=== PATIENT | male | born 1950 | race Caucasian/White ===

== ENCOUNTER 2016-07-30 11:55 | Inpatient (IN) | payer MEDICAID ==
[~2016-07-30] VITALS: Ht 172.7 cm; Wt 69.4 kg
[2016-07-30] VITALS (12 sets, daily range): BP systolic 75–147; BP diastolic 38–73
[2016-07-30] MEDS ORDERED: SIMV-260 PO (12:39)
[2016-07-30] MEDS ORDERED: LISI1TAB11 PO (12:39)
[2016-07-30] MEDS ORDERED: METF500T4 PO (12:39)
[2016-07-30 13:05] LABS: BASOPHILS % (AUTO) 0.3 % (0.0-2.0); EOSINOPHILS % (AUTO) 0.2 % (1.0-6.0); HEMATOCRIT 42.3 % (41-53); HEMOGLOBIN 14.1 g/dL (13.5-17.5); LYMPHOCYTES # (AUTO) 1.5 K/uL (1.0-4.8); LYMPHOCYTES % (AUTO) 13.8 % (22.0-44.0); MEAN CORPUSCULAR HEMOGLOBIN 29.5 pg (26.0-34.0); MEAN CORPUSCULAR HGB CONC 33.4 G/dL (31.0-37.0); MEAN CORPUSCULAR VOLUME 89 fL (80-100); MONOCYTES % (AUTO) 9.7 % (2.0-9.0); NEUTROPHILS # (AUTO) 8.2 K/uL (1.8-7.7); PLATELET COUNT (AUTO) 238 K/uL (150-450); RED BLOOD CELL COUNT(AUTO) 4.77 MIL/uL (4.50-5.90); RED CELL DISTRIBUTION WIDTH 12.5 % (11.5-14.5); WHITE BLOOD COUNT (AUTO) 10.8 K/uL (4.5-11.0)
[2016-07-30 13:12] LABS: ANION GAP 11 mmol/L (8-16); CARBON DIOXIDE 25 mmol/L (22-29); CHLORIDE 99 mmol/L (98-107); CREATININE 0.61 mg/dL (0.60-1.30); GLOMERULAR FILTR. RATE CALC > 60 mL/min (>60); POTASSIUM 4.1 mmol/L (3.5-5.1); SODIUM SERUM 135 mmol/L (136-145); UREA NITROGEN, BLOOD 5 mg/dL (7-18)
[2016-07-30 13:22] LABS: B-TYPE NATRIURETIC PEPTIDE 171 pg/mL (0-100)
[2016-07-30 13:36] LABS: ALANINE AMINOTRANSFERASE 49 U/L (12-78); ALBUMIN 3.9 g/dL (3.4-5.0); ASPARTATE AMINOTRANSFERASE 75 U/L (15-37); BILIRUBIN,TOTAL 0.5 mg/dL (0.1-1.0); CREATINE KINASE MB 38.2 ng/mL (0-5); CREATINE KINASE, TOTAL 416 U/L (39-308); TOTAL PROTEIN, SERUM 7.3 g/dL (6.4-8.2)
[2016-07-30] MEDS ORDERED: HEPARIN SODIUM,PORCINE 5,000 UNITS/ML VIAL IVP PRN ×2 (14:15)
[2016-07-30] MEDS ORDERED: HEPARIN SODIUM,PORCINE 5,000 UNITS/ML VIAL IVP ONE ×3 (14:15→15:30)
[2016-07-30] MEDS ORDERED: MORPHINE SULFATE 4 MG/ML SYRINGE IVP ONE (14:15)
[2016-07-30] MEDS ORDERED: HEPARIN SODIUM 25000 UNITS/D5W 250 ML IV PRN (14:15)
[2016-07-30] MEDS ORDERED: LIDOCAINE HCL/PF 1% 30 ML VIAL ONE (14:22)
[2016-07-30] MEDS ORDERED: SODIUM BICARBONATE 50 MEQ/50 ML VIAL ONE (14:23)
[2016-07-30] MEDS ORDERED: IOHEXOL 300 MG/ML 150 ML VIAL ONE (14:23)
[2016-07-30] MEDS ORDERED: HEPARIN SODIUM 1000 UNITS/NS 1,000 ML ONE (14:23)
[2016-07-30] MEDS ORDERED: NITROGLYCERIN 50 MG/D5% WATER 250 ML ONE ×2 (14:55→15:04)
[2016-07-30] MEDS ORDERED: MIDAZOLAM HCL 2 MG/2 ML VIAL ONE (14:55)
[2016-07-30] MEDS ORDERED: FentaNYL CITRATE-PF 100 MCG/2 ML VIAL ONE (14:55)
[2016-07-30] MEDS ORDERED: HEPARIN SODIUM,PORCINE 1,000 UNITS/ML 10 ML VIAL ONE (14:55)
[2016-07-30] MEDS ORDERED: VERAPAMIL HCL 2.5 MG/ML 2 ML VIAL ONE ×2 (14:55→15:04)
[2016-07-30] MEDS ORDERED: SODIUM CHLORIDE 0.9% 500 ML IV ONE ×3 (14:57→17:30)
[2016-07-30] MEDS ORDERED: HEPARIN SODIUM 2,000 UNITS in HEPARIN SODIUM 1000 UNITS/NS 1,000 ML IARTER ONE (14:57)
[2016-07-30] MEDS ORDERED: IOHEXOL 300 MG/ML 150 ML VIAL IARTER ONE (15:00)
[2016-07-30] MEDS ORDERED: LIDOCAINE 1% 30 ML/SOD BICARB 8.4% 4 ML SQ ONE (15:00)
[2016-07-30] MEDS ORDERED: IOHEXOL 300 MG/ML 50 ML VIAL ONE ×2 (15:04→15:33)
[2016-07-30] MEDS ORDERED: IOHEXOL 300 MG/ML 100 ML VIAL ONE (15:04)
[2016-07-30] MEDS ORDERED: ACETAMINOPHEN 325 MG TABLET PO PRN ×2 (15:15→17:00)
[2016-07-30] MEDS ORDERED: ASPIRIN 81 MG CHEWABLE TABLET ONE (15:24)
[2016-07-30] MEDS ORDERED: TICAGRELOR 90 MG TABLET ONE (15:24)
[2016-07-30] MEDS ORDERED: TICAGRELOR 90 MG TABLET PO ONE (15:30)
[2016-07-30] MEDS ORDERED: ASPIRIN 81 MG CHEWABLE TABLET PO ONE (15:30)
[2016-07-30] MEDS ORDERED: VERAPAMIL HCL 2.5 MG/ML 2 ML VIAL ICOR ONE ×2 (15:45)
[2016-07-30] MEDS ORDERED: IOHEXOL 300 MG/ML 100 ML VIAL IARTER ONE (15:45)
[2016-07-30] MEDS ORDERED: NITROGLYCERIN/D5W 50 MG/250 ML IV BOTTLE ICOR ONE ×2 (15:45)
[2016-07-30] MEDS ORDERED: IOHEXOL 300 MG/ML 50 ML VIAL IARTER ONE (15:45)
[2016-07-30] MEDS ORDERED: DEXTROSE 50%-WATER 25 GM/50 ML SYRINGE IVP PRN ×2 (16:15→17:15)
[2016-07-30] MEDS ORDERED: MORPHINE SULFATE 2 MG/ML SYRINGE IVP PRN (17:00)
[2016-07-30] MEDS ORDERED: HYDROCODONE/ACETAMINOPHEN 5-325 MG TABLET PO PRN (17:00)
[2016-07-30] MEDS ORDERED: ZOLPIDEM TARTRATE 5 MG TABLET PO PRN (17:00)
[2016-07-30] MEDS ORDERED: ALBUTEROL SULFATE 2.5 MG/0.5 ML NEB SOLUTION NEB PRN (17:00)
[2016-07-30] MEDS ORDERED: MAGNESIUM HYDROXIDE SUSPENSION 30 ML UDCUP PO PRN (17:00)
[2016-07-30] MEDS ORDERED: IPRATROPIUM BROMIDE 0.5 MG/2.5 ML NEB SOLUTION NEB PRN (17:00)
[2016-07-30] MEDS ORDERED: BISACODYL 10 MG RECTAL RECTAL SUPPOSITORY PR PRN (17:00)
[2016-07-30] MEDS ORDERED: ONDANSETRON HCL 4 MG/2 ML VIAL IVP PRN (17:00)
[2016-07-30] MEDS ORDERED: SODIUM CHLORIDE 0.9% 1,000 ML IV ONE (17:01)
[2016-07-30] MEDS ORDERED: ATROPINE SULFATE 0.1 MG/ML 10 ML SYRINGE IVP ONE ×3 (17:02→17:30)
[2016-07-30 21:37] LABS: GLUCOSE,POINT OF CARE 143 MG/DL (70-110)
[2016-07-30] MEDS: ATORVASTATIN CALCIUM 40 MG TABLET PO SCH (21:56)
[2016-07-30] MEDS: DOCUSATE SODIUM 100 MG CAPSULE PO SCH (21:56)
[2016-07-30] MEDS: TICAGRELOR 90 MG TABLET PO SCH (21:56)
[2016-07-30] MEDS: INSULIN ASPART 100 UNITS/ML SQ PRN (21:58)
[2016-07-31] VITALS: BP 126/70
[2016-07-31 01:42] LABS: GLUCOSE COMMENT 1 Received Meds; GLUCOSE,POINT OF CARE 168 MG/DL (70-110)
[2016-07-31 04:00] VITALS: BP 124/66
[2016-07-31 05:33] LABS: BASOPHILS # (AUTO) 0.03 K/uL (0.00-0.20); BASOPHILS % (AUTO) 0.3 % (0.0-2.0); EOSINOPHILS # (AUTO) 0.02 K/uL (0.00-0.70); EOSINOPHILS % (AUTO) 0.25 % (1.0-6.0); HEMOGLOBIN 13.1 g/dL (13.5-17.5); LYMPHOCYTES # (AUTO) 1.3 K/uL (1.0-4.8); LYMPHOCYTES % (AUTO) 13.3 % (22.0-44.0); MEAN CORPUSCULAR HEMOGLOBIN 29.4 pg (26.0-34.0); MEAN CORPUSCULAR HGB CONC 33.5 G/dL (31.0-37.0); MEAN CORPUSCULAR VOLUME 88 fL (80-100); MONOCYTES # (AUTO) 1.5 K/uL (0.1-1.0); MONOCYTES % (AUTO) 14.5 % (2.0-9.0); NEUTROPHILS # (AUTO) 7.2 K/uL (1.8-7.7); NEUTROPHILS % (AUTO) 71.7 % (40.0-70.0); PLATELET COUNT (AUTO) 219 K/uL (150-450); RED BLOOD CELL COUNT(AUTO) 4.46 MIL/uL (4.50-5.90); RED CELL DISTRIBUTION WIDTH 12.3 % (11.5-14.5)
[2016-07-31 06:04] LABS: HEMOGLOBIN A1C 7.5 % (4.5-6.2)
[2016-07-31 06:13] LABS: ALANINE AMINOTRANSFERASE 45 U/L (12-78); ALBUMIN 3.3 g/dL (3.4-5.0); ANION GAP 9 mmol/L (8-16); ASPARTATE AMINOTRANSFERASE 94 U/L (15-37); BILIRUBIN,TOTAL 0.8 mg/dL (0.1-1.0); CALCIUM, TOTAL 8.4 mg/dL (8.8-10.5); CARBON DIOXIDE 26 mmol/L (22-29); CHLORIDE 99 mmol/L (98-107); CHOL/HDL RATIO 3.4 (4.2-7.3); CREATINE KINASE MB 37.5 ng/mL (0-5); CREATINE KINASE, TOTAL 474 U/L (39-308); CREATININE 0.65 mg/dL (0.60-1.30); GLOMERULAR FILTR. RATE CALC > 60 mL/min (>60); POTASSIUM 3.4 mmol/L (3.5-5.1); SODIUM SERUM 134 mmol/L (136-145); TOTAL PROTEIN, SERUM 6.6 g/dL (6.4-8.2); UREA NITROGEN, BLOOD 10 mg/dL (7-18)
[2016-07-31] MEDS: INSULIN ASPART 100 UNITS/ML SQ PRN ×4 (06:37→21:04)
[2016-07-31] MEDS ORDERED: POTASSIUM CHLORIDE 20 MEQ ER TABLET PO PRN (09:15)
[2016-07-31] MEDS ORDERED: POTASSIUM CHL 10 MEQ/WATER 50 ML IV PRN (09:15)
[2016-07-31] MEDS: METOPROLOL SUCCINATE 25 MG ER TABLET PO SCH (09:52)
[2016-07-31] MEDS: TICAGRELOR 90 MG TABLET PO SCH ×2 (09:53→20:48)
[2016-07-31] MEDS: LISINOPRIL 20 MG TABLET PO SCH (09:53)
[2016-07-31] MEDS: PANTOPRAZOLE SODIUM 40 MG DR TABLET PO SCH (09:53)
[2016-07-31] MEDS: DOCUSATE SODIUM 100 MG CAPSULE PO SCH ×2 (09:53→20:48)
[2016-07-31] MEDS: ASPIRIN 81 MG CHEWABLE TABLET PO SCH (09:53)
[2016-07-31 12:27] VITALS: BP 141/60
[2016-07-31 15:49] VITALS: BP 108/54
[2016-07-31 17:31] LABS: GLUCOSE,POINT OF CARE 159 MG/DL (70-110)
[2016-07-31] MEDS ORDERED: PNEUMOCOCCAL VACCINE POLYVALENT 0.5 ML VIAL [PPSV23] IM ONE (18:45)
[2016-07-31] MEDS ORDERED: INFLUENZA VIRUS VACCINE QVS 2016-17 (3YR+)/PF 60 MCG/0.5 ML SYRINGE IM ONE (18:45)
[2016-07-31 19:35] VITALS: BP 120/62
[2016-07-31 20:25] LABS: GLUCOSE COMMENT 1 Received Meds; GLUCOSE,POINT OF CARE 228 MG/DL (70-110)
[2016-07-31] MEDS: ATORVASTATIN CALCIUM 40 MG TABLET PO SCH (20:48)
[2016-07-31 23:58] VITALS: BP 122/61
[2016-08-01 02:27] LABS: GLUCOSE COMMENT 1 Received Meds; GLUCOSE,POINT OF CARE 169 MG/DL (70-110)
[2016-08-01 05:01] VITALS: BP 118/60
[2016-08-01] MEDS: INSULIN ASPART 100 UNITS/ML SQ PRN ×2 (06:27→12:32)
[2016-08-01 07:11] LABS: BASOPHILS % (AUTO) 0.3 % (0.0-2.0); EOSINOPHILS % (AUTO) 0.3 % (1.0-6.0); HEMATOCRIT 39.4 % (41-53); HEMOGLOBIN 13.2 g/dL (13.5-17.5); LYMPHOCYTES # (AUTO) 1.6 K/uL (1.0-4.8); LYMPHOCYTES % (AUTO) 17.6 % (22.0-44.0); MEAN CORPUSCULAR HEMOGLOBIN 29.4 pg (26.0-34.0); MEAN CORPUSCULAR HGB CONC 33.5 G/dL (31.0-37.0); MEAN CORPUSCULAR VOLUME 88 fL (80-100); MONOCYTES # (AUTO) 1.3 K/uL (0.1-1.0); NEUTROPHILS # (AUTO) 6.2 K/uL (1.8-7.7); NEUTROPHILS % (AUTO) 67.8 % (40.0-70.0); PLATELET COUNT (AUTO) 197 K/uL (150-450); RED CELL DISTRIBUTION WIDTH 12.8 % (11.5-14.5); WHITE BLOOD COUNT (AUTO) 9.1 K/uL (4.5-11.0)
[2016-08-01 07:26] LABS: ALANINE AMINOTRANSFERASE 35 U/L (12-78); ALBUMIN 3.2 g/dL (3.4-5.0); ANION GAP 8 mmol/L (8-16); ASPARTATE AMINOTRANSFERASE 41 U/L (15-37); CALCIUM, TOTAL 8.7 mg/dL (8.8-10.5); CARBON DIOXIDE 25 mmol/L (22-29); CHLORIDE 103 mmol/L (98-107); CREATININE 0.65 mg/dL (0.60-1.30); GLOMERULAR FILTR. RATE CALC > 60 mL/min (>60); POTASSIUM 3.9 mmol/L (3.5-5.1); SODIUM SERUM 136 mmol/L (136-145); TOTAL PROTEIN, SERUM 6.8 g/dL (6.4-8.2); UREA NITROGEN, BLOOD 10 mg/dL (7-18)
[2016-08-01 07:38] VITALS: BP 133/64
[2016-08-01 07:51] LABS: GLUCOSE COMMENT 1 Received Meds; GLUCOSE,POINT OF CARE 160 MG/DL (70-110)
[2016-08-01 07:51] LABS: GLUCOSE COMMENT 1 Received Meds; GLUCOSE,POINT OF CARE 274 MG/DL (70-110)
[2016-08-01] MEDS: ASPIRIN 81 MG CHEWABLE TABLET PO SCH (11:49)
[2016-08-01] MEDS: TICAGRELOR 90 MG TABLET PO SCH (11:49)
[2016-08-01 11:50] VITALS: BP 133/74
[2016-08-01] MEDS: DOCUSATE SODIUM 100 MG CAPSULE PO SCH (11:50)
[2016-08-01] MEDS: LISINOPRIL 20 MG TABLET PO SCH (11:50)
[2016-08-01] MEDS: PANTOPRAZOLE SODIUM 40 MG DR TABLET PO SCH (11:50)
[2016-08-01] MEDS: METOPROLOL SUCCINATE 25 MG ER TABLET PO SCH (11:50)
[2016-08-01 15:01] LABS: GLUCOSE COMMENT 1 Received Meds; GLUCOSE,POINT OF CARE 187 MG/DL (70-110)
[2016-08-01] MEDS ORDERED: ASPI81 PO (16:11)
[2016-08-01] MEDS ORDERED: ATOR40TA71 PO (16:12)
[2016-08-01] MEDS ORDERED: LISI-662 PO (16:12)
[2016-08-01] MEDS ORDERED: TICA90TA PO (16:13)
[2016-08-01] MEDS ORDERED: METO-323 PO (16:13)
[2016-08-01 16:27] VITALS: BP 131/71
== END 2016-08-01 17:15 | disposition home or self-care (01) | DRG 247 ==
LOC: EMS 11:59 → ICU 14:42 → 5S 07-31 12:41
PROVIDERS: ADMIT Hospitalist; ATTEND Hospitalist
PROC: 027035Z Dilation of Coronary Artery, One Artery with Two Drug-eluting Intraluminal Devices, Percutaneous Approach (ICD-10-PCS; principal; 2016-07-30)
PROC: 4A023N7 Measurement of Cardiac Sampling and Pressure, Left Heart, Percutaneous Approach (ICD-10-PCS; 2016-07-30)
PROC: B2111ZZ Fluoroscopy of Multiple Coronary Arteries using Low Osmolar Contrast (ICD-10-PCS; 2016-07-30)
PROC: B2151ZZ Fluoroscopy of Left Heart using Low Osmolar Contrast (ICD-10-PCS; 2016-07-30)
PROC: 3E0234Z Introduction of Serum, Toxoid and Vaccine into Muscle, Percutaneous Approach (ICD-10-PCS; 2016-07-31)
DX: I21.4 Non-ST elevation (NSTEMI) myocardial infarction (principal); E78.00 Pure hypercholesterolemia, unspecified; E11.9 Type 2 diabetes mellitus without complications; I25.10 Atherosclerotic heart disease of native coronary artery without angina pectoris; I10 Essential (primary) hypertension; E78.5 Hyperlipidemia, unspecified; Z79.84 Long term (current) use of oral hypoglycemic drugs; Z79.899 Other long term (current) drug therapy; Z23 Encounter for immunization
CPT/HCPCS: 82962; 83036; 84132; 87081; 90471; 92920; 92928; 93005; 93306; 96372; 96374; 96375; 99291; J0461; J1644; J2250; J2270; J3010; J3490; J7030; Q9967